=== PATIENT | female | born 1990 | race African-American/Black ===

== ENCOUNTER 2016-06-30 17:17 | Inpatient (IN) | payer OTHER ==
--- NOTE | ~2016-06-30 | HP ---
Unit #: [id number] #: [id number] Patient: LAVONNE TOBIN [id number] [place] [address] [id number] I MR#: [id number] NAME: LAVONNE TOBIN ROOM: P212 Age: 25 Sex: F Admission Date: 06/30/2016 : 1990 Attending Physician: Josefina Romano M.D. Admitting Physician: Josefina Romano M.D. Primary Care Physician: Lakeisha Hammer [facility] HISTORY AND PHYSICAL HISTORY OF PRESENT ILLNESS Lavonne is a 25-year-old female admitted to [address] [place] [address] because of her drug use. She snorts heroin. PAST MEDICAL HISTORY 1. History of opioid abuse to include snorting heroin. 2. Seizure disorder. PAST SURGICAL HISTORY Appendectomy. ALLERGIES No known drug allergies. SOCIAL HISTORY Smokes 1 pack per day. Denies alcohol. Admits to long history of opioid abuse to include snorting heroin. FAMILY HISTORY Medically noncontributory. REVIEW OF SYSTEMS CONSTITUTIONAL: No fever or chills. HEENT: Denies any sore throat, ear pain or runny nose. CARDIOVASCULAR: Denies chest pain, irregular heart rhythm or palpitations. CHEST: Denies shortness of breath or cough. No hemoptysis. GASTROINTESTINAL: Denies nausea, vomiting, diarrhea or chronic constipation. ENDOCRINE: Denies history of increased thirst or urination. No recent significant weight loss or gain. GENITOURINARY: Denies dysuria, frequency, or hematuria. SKIN: Denies any rashes. HEMATOLOGIC: Denies history of increased bleeding or bruising. MUSCULOSKELETAL: Denies any hot, swollen joints. No generalized muscle pain. NEUROLOGIC: Denies problems with vision or speech. No frequent, severe headaches. No numbness, tingling or weakness in any extremities. Denies loss of bladder or bowel control. CURRENT MEDICATIONS 1. Detox protocol. 2. Lamictal 200 mg b.i.d. Unit #: [id number] #: [id number] Patient: LAVONNE TOBIN PHYSICAL EXAMINATION GENERAL: Alert, well-nourished, in no apparent distress. VITAL SIGNS: Blood pressure 130/80, heart rate 80, respirations 16, temperature 98.6. WEIGHT: 116. HEIGHT: 5 feet 2 inches. SKIN: Warm and dry without rash or lesion. HEENT: Normocephalic. TMs not viewed. Oral and nasal passages clear. Conjunctivae clear. PERRLA. EOMs intact. NECK: Supple without lymphadenopathy or thyromegaly. HEART: Regular rate and rhythm without murmur. LUNGS: Clear. ABDOMEN: Soft, nontender. : Not done. EXTREMITIES: No evidence of cyanosis, clubbing or edema. Moves all without focal deficit. NEUROLOGICAL: Grossly within normal limits. Cranial Nerves: II: Visual urrutia are intact. III, IV AND : Extraocular movements are intact. Pupils are equal, round and reactive to light. V: Facial sensation is grossly normal. VII: Facial movements and expression are normal. VIII: Auditory acuity grossly intact. IX, X: Uvula is midline. Phonation is normal. XI: Patient shrugs shoulders and turns head normally. XII: Tongue protrudes in the midline. Sensory and Motor Function: Sensory and motor sensation is grossly normal. Motor: moves all extremities well. Coordination: Gait is normal. Deep Tendon Reflexes: Intact. IMPRESSION Psychiatric admission. RECOMMENDATIONS PSYCHIATRIC: Per psychiatrist. MEDICAL: See no contraindications to participate in facility's activities. MEDICAL PROGNOSIS Good. MEDICAL CONDITION Stable. Dictated by... Gianna BrionesAVera. for Carla Pereira/charlette TD: 07/01/2016 15:23 JOB #: [id number] Unit #: [id number] #: [id number] Patient: LAVONNE TOBIN HISTORY AND PHYSICAL Page 1 of 1 X Suzan Mendez HISTORY AND PHYSICAL
--- NOTE | ~2016-06-30 | PN ---
Unit #: [id number] #: [id number] Patient: LAVONNE TOBIN [id number] [facility] [address] [place] [address] [id number] I MR#: [id number] NAME: LAVONNE TOBIN ROOM: P212 Age: 25 Sex: F Admission Date: 06/30/2016 : 1990 Attending Physician: Josefina Romano M.D. Admitting Physician: Josefina Romano M.D. Primary Care Phys[facility] PROGRESS NOTES DATE 07/04/2016 DISCUSSION Ms. Tobin is a 25-year-old female who was seen today and chart was reviewed and case was discussed with the staff. She has been anxious, withdrawn and seclusive to herself. Meanwhile, she has been cooperative with treatment recommendations as she has been taking the medications and tolerating them fairly well with no reported side effects. MENTAL STATUS EXAMINATION Young female who was casually dressed with fair personal hygiene, appears to be in no acute distress or discomfort. She was awake and alert on interaction with intact orientation. Her mood was anxious with congruent affect. She denies any suicidal or homicidal ideations. Her insight and judgement remains slightly impaired. TREATMENT PLAN 1. We will continue her on her current medications and treatment protocol. We will monitor her response to the medication and make further adjustments as needed. 2. We will continue to follow up. Dictated by... Carla Bonner/pardeep TD: 07/05/2016 23:29 JOB #: [id number] Unit #: [id number] #: [id number] Patient: LAVONNE TOBIN [facility] PROGRESS NOTES Page 1 of 1 X Josefina Romano MD X PROGRESS NOTE
--- NOTE | ~2016-06-30 | PN ---
Unit #: [id number] #: [id number] Patient: LAVONNE TOBIN [id number] [facility] [address] [place] [address] [id number] I MR#: [id number] NAME: LAVONNE TOBIN ROOM: P212 Age: 25 Sex: F Admission Date: 06/30/2016 : 1990 Attending Physician: Josefina Romano M.D. Admitting Physician: Josefina Romano M.D. [facility] PROGRESS NOTES DATE 07/03/2016 DISCUSSION Ms. Tobin is a 25-year-old female who was seen today and chart was reviewed and case was discussed with the staff. She has been anxious, withdrawn and rather seclusive to herself. Meanwhile, she has been cooperative with treatment recommendations as she has been apologetic for behavior from yesterday. MENTAL STATUS EXAMINATION Young female who was casually dressed with fair personal hygiene, appears to be in no acute distress or discomfort. She was awake and alert with impaired attention and concentration. Her mood was anxious with congruent affect. Her speech was slow and goal-directed. She denies any suicidal or homicidal ideations. Her insight and judgement remains slightly impaired. TREATMENT PLAN 1. We will continue her on her current treatment protocol. We will monitor her response to medication and make further adjustments as needed. 2. We will continue to follow up. Dictated by... Carla Bonner/pardeep TD: 07/05/2016 03:51 JOB #: [id number] Unit #: [id number] #: [id number] Patient: LAVONNE TOBIN [facility] PROGRESS NOTES Page 1 of 1 X Josefina Romano MD X PROGRESS NOTE
--- NOTE | ~2016-06-30 | DS ---
Unit #: [id number] #: [id number] [facility] [id number] [facility] [address] [place] [address] [id number] I MR#: [id number] NAME: LAVONNE CAMPOS ROOM: [facility] Age: 25 Sex: F Admission Date: 06/30/2016 : 1990 Discharge Date: 07/05/2016 Attending Physician: Josefina Romano M.D. [facility] DISCHARGE SUMMARY IDENTIFYING DATA Ms. Campos is a 25-year-old single female, who is a resident of [place], [place], and was self-referred to the hospital on a voluntary basis. DISCHARGE DIAGNOSES Psychiatric: Opioid dependence, moderate and acute withdrawals; cannabis dependence, moderate; opioid-induced mood disorder. Medical: Seizure disorder. Stressors: Moderate psychosocial stressors. HISTORY OF PRESENT ILLNESS Please see initial psychiatric evaluation for details. PAST PSYCHIATRIC HISTORY Please see initial psychiatric evaluation for details. PAST MEDICAL HISTORY Please see initial psychiatric evaluation for details. HOSPITAL COURSE The [facility] and was oriented to the hospital environment. Routine p.r.n. medications were initiated, and she was started back on her home medications and opioid detox protocol was initiated and she was taken off Xanax as well, which she has been taking it for her seizures, but then she has not been taking or filling her prescription for Lamictal which is an antiseizure medication and therefore, Lamictal was started back and she was medically detoxed and initially was seen to be agitated and irritable, and then she was able to calm down, was more cooperative and compliant with treatment recommendations and was able to complete the treatment without any complications and was willing to continue treatment on an outpatient basis and was not seen to be danger to self or anyone else, and as such, it was decided that she will be discharged home and will continue treatment on an outpatient basis. DISCHARGE MEDICATIONS Lamictal 200 mg b.i.d. for seizure disorder. DISCHARGE CONDITION Stable. PROGNOSIS Fair. Unit #: [id number] #: [id number] Patient: LAVONNE CAMPOS Dictated by... Josefina Romano M.D. IAA/modl TD: 07/05/2016 07:03 JOB #: [id number] DISCHARGE SUMMARY Page 1 of 1 X Josefina Romano MD DISCHARGE SUMMARY
--- NOTE | ~2016-06-30 | PA ---
Unit #: [id number] #: [id number] Patient: LAVONNE CAMPOS [id number] [facility] [address] [place] [address] [id number] I MR#: [id number] NAME: LAVONNE CAMPOS ROOM: P212 Age: 25 Sex: F Admission Date: 06/30/2016 : 1990 Date of Assessment: 06/30/2016 Attending Physician: Josefina Romano M.D. Admitting Physician: Josefina Romano M.D. PSYCHIATRIC ASSESSMENT DATE OF SERVICE 06/30/2016. IDENTIFYING DATA Ms. Campos is a 25-year-old single female, who is a resident of [place], [place] and was self-referred to the hospital on a voluntary basis, though she stated that she was referred here by her digital controls technical officer. CHIEF COMPLAINT "I disclosed that I was using." HISTORY OF PRESENT ILLNESS Ms. Campos is a 25-year-old female, who reports that she is on probation and is in legal trouble and she disclosed her digital controls technical officer that she was still using and that she is currently abusing heroin and smoking methamphetamine that she is snorting about a gram a day and that she gets violent with others by punching holes, and her digital controls technical officer recommended that she needs to get into chemical dependency treatment, that she reports that she has history of anxiety and seizures and that she has had significant changing of personality when she is using and she is getting agitated, irritable, and destroying property, and getting on people and as such, recommendation for inpatient level of care for safety and stabilization and medical detox was made. SUBSTANCE ABUSE HISTORY The patient reports history of cannabis and opioid abuse and reports she has been using a gram of heroin on daily basis and has been using cannabis twice a week, and in addition to that, she has been getting prescription of Xanax three times a day. PAST PSYCHIATRIC HISTORY The patient has not had any prior inpatient psychiatric hospitalization, though currently she is not seeing a psychiatrist, but has been going to [facility] and was seeing a local provider there and has been getting Xanax and Lamictal. PAST MEDICAL HISTORY The patient's medical history is significant for seizure disorder. The patient reports that she is supposed to be on Lamictal, but has not had the prescription filled in the last 4 months. PAST MEDICAL HISTORY Unit #: [id number] #: [id number] Patient: LAVONNE CAMPOS Seizure disorder. ALLERGIES No known medication allergies. PERSONAL AND SOCIAL HISTORY A 25-year-old female, who reports that she is single, unemployed, and lives with her mother and brother and has fairly decent social support system. MENTAL STATUS EXAMINATION Young female, who was casually dressed with fair personal hygiene, appears to be in no acute distress or discomfort. She was awake and alert on interaction with intact orientation to time, place, and person. Her mood was anxious and depressed with a congruent affect. Her speech was slow and restricted in content. Her thought processes were disorganized with some looseness of associations and paranoid ideations and delusional behavior. Her insight and judgment remain significantly impaired. DIAGNOSTIC IMPRESSION Psychiatric: Opioid dependence, moderate, and acute withdrawals; cannabis dependence, moderate; opioid-induced mood disorder. Medical: Seizure disorder. Stressors: Moderate psychosocial stressors. TREATMENT PLAN 1. The patient has presented with a history of substance abuse and mood disorder and has been decompensating and will need inpatient hospitalization for detoxification, safety, and stabilization. We will start her on detox protocol. We will closely monitor for any worsening withdrawal symptoms. 2. Supportive therapy was provided to the patient. 3. Safe, structured, and nourishing environment will be provided. ESTIMATED LENGTH OF STAY 5 to 7 days. ABILITY TO HELP SELF Limited. WILLINGNESS TO HELP SELF The patient appears to be willing to help self. STRENGTHS 1. Communicative. 2. Cooperative. PROBLEMS 1. Chronic dysphoric symptoms. 2. Chronic chemical dependency. 3. Poor social support system. DISCHARGE CRITERIA This will be contingent upon the patient's ability to go through detox without having any significant withdrawal symptoms as well as her ability to stay safe to herself, particularly after discharge from the hospital. Unit #: [id number] #: [id number] Patient: LAVONNE CAMPOS Dictated by... Carla Bonner/michelle TD: 07/01/2016 07:47 JOB #: [id number] PSYCHIATRIC ASSESSMENT Page 1 of 1 X Josefina Romano MD PSYCHIATRIC ASSESSMENT
--- NOTE | ~2016-06-30 | PN ---
Unit #: [id number] #: [id number] Patient: LAVONNE CAMPOS [id number] [facility] [address] [place] [address] [id number] MR#: [id number] NAME: LAVONNE CAMPOS ROOM: P212 Age: 25 Sex: F Admission Date: 06/30/2016 : 1990 Attending Physician: Josefina Romano M.D. Admitting Physician: Josefina Romano M.D. [facility] PROGRESS NOTES DATE OF SERVICE 07/01/2016 DISCUSSION Ms. Campos is a 25-year-old female who was seen today. Chart was reviewed and case was discussed with the staff. She has been anxious, withdrawn, and rather seclusive to herself. Meanwhile, she has been cooperative with treatment recommendations and has been taking the medications and tolerating them fairly well with no reported side effects. MENTAL STATUS EXAMINATION Young female who is casually dressed with fair personal hygiene, appears to be in no acute distress or discomfort. She was awake and alert on interaction with intact orientation. Her mood is anxious with congruent affect. She denies any suicidal or homicidal ideation. Her insight and judgment remain slightly impaired. TREATMENT PLAN 1. We will continue her on her current medications and treatment protocol. We will monitor her response to the medications and make further adjustments as needed. 2. We will continue to follow up. Dictated by... Josefina Romano M.D. IAA/bzg TD: 07/02/2016 06:58 JOB #: [id number] [facility] PROGRESS NOTES Page 1 of 1 X Josefina Romano MD PROGRESS NOTE
--- NOTE | ~2016-06-30 | PN ---
Unit #: [id number] #: [id number] Patient: LAVONNE TOBIN [id number] [facility] [address] [place] [address] [id number] I MR#: [id number] NAME: LAVONNE TOBIN ROOM: [facility] Age: 25 Sex: F Admission Date: 06/30/2016 : 1990 Attending Physician: Josefina Romano M.D. Admitting Physician: Josefina Romano M.D. [facility] PROGRESS NOTES DATE OF SERVICE 07/02/2016 DISCUSSION Ms. Tobin is a 25-year-old female who was seen today. Chart was reviewed and case was discussed with the staff. She has been anxious, agitated, irritable and has been exhibiting med-seeking behavior and poor insight into her situation and has been losing motivation for treatment team meeting as well. Meanwhile, she has been taking the medications and tolerating them fairly well with no reported side effects. MENTAL STATUS EXAMINATION Young female who is casually dressed with fair personal hygiene, appears to be in no acute distress or discomfort. She was awake and alert with impaired attention and concentration. Her mood is anxious with a congruent affect. Her speech is slow and restricted in content. She denies any suicidal or homicidal ideations. Her insight and judgment remain slightly impaired. TREATMENT PLAN 1. We will continue her on her current treatment protocol. We will monitor her response and make further adjustments as needed. 2. We will continue to follow up. Dictated by... Carla Bonner/yanely TD: 07/03/2016 12:29 JOB #: [id number] Unit #: [id number] #: [id number] Patient: LAVONNE TOBIN [facility] PROGRESS NOTES Page 1 of 1 X Josefina Romano MD PROGRESS NOTE
[~2016-06-30 17:17] MED LIST: FLEXERIL10 M1 PO; IBUPROFEN PO; IBUPROFEN800 MG PO; KEPPRA500 MG PO; ORUDIS75 M1 PO
[2016-07-01 09:42] LABS: BASOPHIL% 0.7 % (0-2.5); EOSINOPHIL# 0.1 X10e3 (0-0.7); EOSINOPHIL% 2.3 % (0.0-7.0); HEMATOCRIT 42.1 % (35.0-45.0); HEMOGLOBIN 13.7 gm/dL (12.0-16.0); LYMPHOCYTE% 42.5 % (17.0-45.0); MEAN CELL VOLUME 90.4 FL (83-96); MEAN CORPUSCULAR HEMOGLOBIN 29.5 PG (28-34); MEAN CORPUSCULAR HGB CONC 32.6 g/dL (30-36); MEAN PLATELET VOLUME 8.2 FL (6.5-11.5); MONOCYTE# 0.4 X10e3 (0-1.0); MONOCYTE% 7.8 % (3.0-12.0); NEUTROPHIL# 2.2 X10e3 (1.5-7.1); NEUTROPHIL% 46.7 % (40-75); PLATELET COUNT 277 X10e3 (140-420); RED BLOOD COUNT 4.66 X10e (3.90-5.30); RED CELL DISTRIBUTION WIDTH 14.7 % (11.0-15.5); WHITE BLOOD COUNT 4.7 X10e3 (4.0-10.5)
[2016-07-01 10:22] LABS: DIFF IND NO
[2016-07-01 10:29] LABS: ALBUMIN SERUM 3.7 g/dL (3.5-5.0); BILIRUBIN,TOTAL 0.5 mg/dL (0.2-2.0); BUN/CREATININE RATIO 12.5; CREATININE SERUM 0.8 mg/dL (0.6-1.4); GLOM FILT RATE Estimated 120.5 mL/min (>60); POTASSIUM 4.5 mmol/L (3.5-5.1); PROTEIN TOTAL SERUM 6.2 g/dL (6.0-8.3)
[2016-07-02 12:45] LABS: URINE APPEARANCE CLEAR; URINE BILIRUBIN NEG (NEG); URINE BLOOD NEG (NEG); URINE COLOR YELLOW; URINE GLUCOSE NEG (NEG); URINE KETONE TRACE (NEG); URINE LEUKOCYTE ESTERASE NEG (NEG); URINE NITRATE NEG (NEG); URINE PH 6.5 (5-8); URINE PROTEIN NEG (NEG); URINE SPECIFIC GRAVITY 1.019 (1.003-1.035); URINE UROBILINOGEN 0.2 MG/DL (NEG)
[2016-07-02 13:21] LABS: AMPHETAMINE NEG (NEG); BARBITURATES NEG (NEG); BENZODIAZEPINES POS (NEG); COCAINE POS (NEG); MARIJUANA POS (NEG); OPIATES POS (NEG); TRICYCLIC ANTIDEPRESSANTS NEG (NEG); U METHADONE NEG (NEG)
== END 2016-07-05 09:29 | DRG 897 ==
LOC: P2S 17:17
PROVIDERS: Psychiatry & Neurology Psychiatry
PROC: HZ2ZZZZ Detoxification Services for Substance Abuse Treatment (ICD-10-PCS; principal; 2016-06-30)
DX: F11.23 Opioid dependence with withdrawal (principal); F11.24 Opioid dependence with opioid-induced mood disorder; F12.20 Cannabis dependence, uncomplicated; G40.909 Epilepsy, unspecified, not intractable, without status epilepticus; F17.210 Nicotine dependence, cigarettes, uncomplicated
CPT/HCPCS: 80053; 80307; 81003; 84439; 84443; 84703; 85025; 86592